=== PATIENT | female | born 1980 | race Caucasian/White ===

== ENCOUNTER 2018-07-12 15:24 | Emergency (ER) | payer MEDICAID ==
[2018-07-12 18:35] LABS: URINE PH (Dip) POC 5.5 (5.0-8.5)
[2018-07-12 18:35] LABS: URINE BLOOD (Dip) POC 1+ (NEGATIVE); URINE GLUCOSE (Dip) POC Negative (NEGATIVE); URINE KETONES (Dip) POC Negative (NEGATIVE); URINE LEUKOCYTE EST (Dip) POC Negative (NEGATIVE); URINE NITRITE (Dip) POC Negative (NEGATIVE); URINE TOTAL PROTEIN POC Negative (NEGATIVE)
[2018-07-12] MEDS: KETOROLAC 60 MG INJ IM (18:44)
== END 2018-07-12 18:58 | disposition home or self-care (01) ==
LOC: FTE 15:24
DX: M54.6 Pain in thoracic spine (principal); J45.909 Unspecified asthma, uncomplicated
CPT/HCPCS: 81003; 81025; 96372; 99284-25

== ENCOUNTER 2018-12-30 15:58 | Emergency (ER) | payer MEDICAID ==
[2018-12-30] MEDS: ALBUTEROL 0.083% (NEB) 2.5 MG/3 ML AMP HHN (21:02)
[2018-12-30] MEDS: IPRATROPIUM (NEB) 0.5 MG/2.5 ML AMP HHN (21:02)
[2018-12-30] MEDS: DEXAMETHASONE (1 MG/ML PO SYG) PO (21:03)
[2018-12-30] MEDS: IBUPROFEN 200 MG TAB PO (22:18)
[2018-12-30] MEDS: ACETAMINOPHEN 325 MG TAB PO (22:18)
== END 2018-12-30 22:27 | disposition home or self-care (01) ==
LOC: FTE 22:27
DX: J20.9 Acute bronchitis, unspecified (principal); J45.901 Unspecified asthma with (acute) exacerbation
CPT/HCPCS: 94664; 99283-25